=== PATIENT | male | born 1960 | race Caucasian/White ===

== ENCOUNTER 2016-12-19 13:34 | Emergency (ER) | payer OTHER ==
[2016-12-19 13:50] VITALS: BP 155/91
--- NOTE | 2016-12-19 14:12 | UC ---
Skin Complaint HPI - HPI Summary HPI Summary: patient is a diabetic, has some neuropathy on the feet. he had a blister open and the skin came off. open wound drainaing serous yellow drainage. the skin around the wound is red. - History of Current Complaint Chief Complaint: UCSkin Time Seen by Provider: 12/19/16 13:56 Stated Complaint: RIGHT BIG TOE SKIN COMPLAINT Hx Obtained From: Patient Onset/Duration: Sudden Onset, Lasting Days Skin Exposure Onset/Duration: Days Ago Timing: Constant Onset Severity: Mild Current Severity: Moderate Location: Discrete - right great toe - Allergy/Home Medications Allergies/Adverse Reactions: Allergies Allergy/AdvReac Type Severity Reaction Status Date / Time No Known Allergies Allergy Verified 12/19/16 13:39 Home Medications: Home Medications Acetaminophen [Acetaminophen Extra Stren] 1,000 mg PO ONCE PRN 12/19/16 [ History Confirmed 12/19/16] Aspirin [Aspirin Adult Low Strengt] 81 mg PO DAILY 12/19/16 [History Confirmed 12/19/16] Atorvastatin* [Lipitor*] 5 mg PO BID 12/19/16 [History Confirmed 12/19/16] Insulin GLARGINE(*) [Lantus(*)] 50 units SUBCUT DAILY 12/19/16 [History Confirmed 12/19/16] Lisinopril/HCTZ 10/12.5(NF) [Zestoretic 10/12.5(NF)] 1 tab PO DAILY 12/19/16 [ History Confirmed 12/19/16] LoraTADine TAB(NF) [Claritin 10 MG TAB(NF)] 10 mg PO DAILY 12/19/16 [History Confirmed 12/19/16] Metformin HCl [Glucophage] 1,000 mg PO BID 12/19/16 [History Confirmed 12/19/16] Multiple Vitamin [Multivitamins] 1 cap PO DAILY 12/19/16 [History Confirmed ] Omeprazole CAP* [Prilosec CAP* 20 MG] 20 mg PO DAILY 12/19/16 [History Confirmed 12/19/16] Review of Systems Constitutional: Negative Skin: Other - open bllister Eyes: Negative ENT: Negative Respiratory: Negative Cardiovascular: Negative Gastrointestinal: Negative Genitourinary: Negative Motor: Negative Neurovascular: Decreased Sensation - feet Musculoskeletal: Negative Neurological: Negative Psychological: Negative All Other Systems Reviewed And Are Negative: Yes PMH/Surg Hx/FS Hx/Imm Hx Previously Healthy: Yes - Surgical History Surgical History: None - Family History Known Family History: Negative: Cardiac Disease, Hypertension - Social History Alcohol Use: Occasionally Substance Use Type: None Smoking Status (MU): Current Some Day Smoker Type: Cigars Amount Used/How Often: 1 monthly Physical Exam Triage Information Reviewed: Yes Appearance: Well-Appearing, Well-Nourished, Pain Distress Vital Signs: Initial Vital Signs Temp 98.5 F 12/19/16 13:44 Pulse 116 12/19/16 13:44 Resp 18 12/19/16 13:44 BP 155/91 12/19/16 13:44 Pulse Ox 97 12/19/16 13:44 Eye Exam: Normal Eyes: Positive: Conjunctiva Clear ENT: Positive: Normal ENT inspection, Hearing grossly normal, Pharynx normal, TMs normal Dental Exam: Normal Neck exam: Normal Neck: Positive: Supple, Nontender, No Lymphadenopathy Respiratory Exam: Normal Respiratory: Positive: Chest non-tender, Lungs clear, Normal breath sounds Cardiovascular Exam: Normal Cardiovascular: Positive: RRR, No Murmur, Pulses Normal Abdominal Exam: Normal Abdomen Description: Positive: Nontender, No Organomegaly, Soft Bowel Sounds: Positive: Present Musculoskeletal Exam: Normal Musculoskeletal: Positive: Strength Intact, ROM Intact, No Edema Neurological Exam: Normal Neurological: Positive: Alert, Muscle Tone Normal Psychological Exam: Normal Skin: Positive: significant lesion(s) - large open blister on the bottom of the left great toe Course/Dx - Diagnoses Provider Diagnoses: DM2. open wound on great toe, left Discharge - Discharge Plan Condition: Stable Disposition: HOME Prescriptions: Cephalexin CAP* [Keflex CAP*] 500 mg PO BID #14 cap Patient Education Materials: Acute Wound Care (ED) Additional Instructions: 1. Use the antibiotics as prescribed 2. Warm foot soaks, allow to rosalind completed, redress wound with the mepilex dressing
== END 2016-12-19 14:36 | disposition home or self-care (01) ==
LOC: UCCORT 13:34
DX: S90.421A Blister (nonthermal), right great toe, initial encounter (principal); X58.XXXA Exposure to other specified factors, initial encounter; Y93.9 Activity, unspecified; Y92.9 Unspecified place or not applicable; E11.40 Type 2 diabetes mellitus with diabetic neuropathy, unspecified; Z79.4 Long term (current) use of insulin; Z79.84 Long term (current) use of oral hypoglycemic drugs; Z72.0 Tobacco use
CPT/HCPCS: 99203; G0463